=== PATIENT | female | born 1960 | race Caucasian/White ===

== ENCOUNTER → 2018-10-10 | Outpatient (CLI) | payer MEDICARE, OTHER, MEDICAID ==
[2018-10-10 13:56] LABS: BASO # 0.1 (0.02-0.10); EOS # 0.3 (0.04-0.40); EOS % 3.3 % (1.0-5.0); HEMATOCRIT 35.4 % (37.0-47.0); HEMOGLOBIN 10.9 g/dL (12.5-16.0); LYMPH# 1.9 (1.50-4.00); MEAN CELL VOLUME 80 fl (78-100); MEAN CORPUSCULAR HEMOGLOBIN 25 pg (27-31); MEAN CORPUSCULAR HGB CONC 31 g/dL (33-37); MEAN PLATELET VOLUME 10.6 fl (7.4-10.4); MONO # 0.7 (0.20-0.80); NEU # 5.3 (1.40-6.50); PLATELET COUNT 336 K/mm3 (130-400); RED BLOOD COUNT 4.44 M/mm3 (4.10-5.30); RED CELL DISTRIBUTION WIDTH 17.1 % (11.5-14.5); WHITE BLOOD COUNT 8.3 K/mm3 (4.8-10.8)
[2018-10-10 14:21] LABS: ALBUMIN 4.4 g/dL (3.5-5.0); CALCIUM 9.5 mg/dL (8.4-10.2); POTASSIUM 4.2 mmol/L (3.6-5.0); TOTAL BILIRUBIN 0.3 mg/dL (0.2-1.3)
== END ==
LOC: LAB 13:39
PROVIDERS: Internal Medicine
DX: C54.1 Malignant neoplasm of endometrium (principal)

== ENCOUNTER → 2018-11-03 | Outpatient (CLI) | payer MEDICARE, OTHER, MEDICAID ==
[2018-11-03 20:21] LABS: HEMATOCRIT 34.8 % (37.0-47.0); HEMOGLOBIN 10.6 g/dL (12.5-16.0); MEAN CELL VOLUME 80 fl (78-100); MEAN CORPUSCULAR HGB CONC 31 g/dL (33-37); MEAN PLATELET VOLUME 11.8 fl (7.4-10.4); PLATELET COUNT 359 K/mm3 (130-400); RED BLOOD COUNT 4.37 M/mm3 (4.10-5.30); RED CELL DISTRIBUTION WIDTH 17.7 % (11.5-14.5); WHITE BLOOD COUNT 8.1 K/mm3 (4.8-10.8)
[2018-11-03 20:38] LABS: ALBUMIN 4.3 g/dL (3.5-5.0); CALCIUM 9.2 mg/dL (8.4-10.2); POTASSIUM 3.7 mmol/L (3.6-5.0); TOTAL BILIRUBIN 0.2 mg/dL (0.2-1.3); TOTAL PROTEIN 8.3 g/dL (6.3-8.2)
[2018-11-03 20:39] LABS: MEAN CORPUSCULAR HEMOGLOBIN 24 pg (27-31)
[2018-11-04 01:58] LABS: BAND 1 % (0-10); NEUTROPHILS 73 % (42-75)
[2018-11-04 01:59] LABS: LYMPHOCYTE 18 % (20-51); MONOCYTE 6 % (3-10)
== END ==
LOC: LAB 16:26
PROVIDERS: Internal Medicine
DX: C54.1 Malignant neoplasm of endometrium (principal)

== ENCOUNTER → 2018-11-24 | Outpatient (CLI) | payer MEDICARE, OTHER, MEDICAID ==
[2018-11-24 15:36] LABS: EOS # 0.2 (0.04-0.40); EOS % 2.6 % (1.0-5.0); HEMATOCRIT 35.3 % (37.0-47.0); HEMOGLOBIN 10.9 g/dL (12.5-16.0); LYMPH# 1.9 (1.50-4.00); MEAN CELL VOLUME 78 fl (78-100); MEAN CORPUSCULAR HGB CONC 31 g/dL (33-37); MEAN PLATELET VOLUME 11.2 fl (7.4-10.4); MONO # 0.6 (0.20-0.80); NEU # 5.1 (1.40-6.50); PLATELET COUNT 325 K/mm3 (130-400); RED BLOOD COUNT 4.54 M/mm3 (4.10-5.30); RED CELL DISTRIBUTION WIDTH 17.4 % (11.5-14.5); WHITE BLOOD COUNT 7.8 K/mm3 (4.8-10.8)
[2018-11-24 15:41] LABS: ALBUMIN 4.3 g/dL (3.5-5.0); CALCIUM 9.3 mg/dL (8.4-10.2); POTASSIUM 4.1 mmol/L (3.6-5.0); TOTAL BILIRUBIN 0.3 mg/dL (0.2-1.3); TOTAL PROTEIN 8.1 g/dL (6.3-8.2)
[2018-11-24 16:10] LABS: MEAN CORPUSCULAR HEMOGLOBIN 24 pg (27-31)
[2018-11-24 23:42] LABS: CA-125 10.2 U/mL (0.0-35.0)
== END ==
LOC: LAB 14:00
PROVIDERS: Internal Medicine
DX: C54.1 Malignant neoplasm of endometrium (principal); Z79.899 Other long term (current) drug therapy

== ENCOUNTER → 2018-12-15 | Outpatient (CLI) | payer MEDICARE, OTHER, MEDICAID ==
[2018-12-15 16:02] LABS: BASO # 0.1 (0.02-0.10); EOS # 0.2 (0.04-0.40); EOS % 2.6 % (1.0-5.0); HEMATOCRIT 34.7 % (37.0-47.0); HEMOGLOBIN 10.5 g/dL (12.5-16.0); LYMPH# 1.9 (1.50-4.00); MEAN CELL VOLUME 80 fl (78-100); MEAN CORPUSCULAR HGB CONC 30 g/dL (33-37); MEAN PLATELET VOLUME 10.7 fl (7.4-10.4); MONO # 0.6 (0.20-0.80); NEU # 5.3 (1.40-6.50); PLATELET COUNT 315 K/mm3 (130-400); RED BLOOD COUNT 4.35 M/mm3 (4.10-5.30)
[2018-12-15 16:10] LABS: MEAN CORPUSCULAR HEMOGLOBIN 24 pg (27-31)
[2018-12-15 16:21] LABS: ALBUMIN 4.4 g/dL (3.5-5.0); POTASSIUM 4.1 mmol/L (3.6-5.0); TOTAL BILIRUBIN 0.4 mg/dL (0.2-1.3); TOTAL PROTEIN 8.1 g/dL (6.3-8.2)
== END ==
LOC: LAB 15:37
PROVIDERS: Internal Medicine
DX: C54.1 Malignant neoplasm of endometrium (principal); E11.65 Type 2 diabetes mellitus with hyperglycemia; Z79.4 Long term (current) use of insulin

== ENCOUNTER → 2019-01-06 | Outpatient (CLI) | payer MEDICARE, OTHER, MEDICAID ==
[2019-01-06 18:02] LABS: EOS # 0.3 (0.04-0.40); EOS % 3.1 % (1.0-5.0); HEMATOCRIT 35.1 % (37.0-47.0); HEMOGLOBIN 10.6 g/dL (12.5-16.0); MEAN CELL VOLUME 80 fl (78-100); MEAN CORPUSCULAR HGB CONC 30 g/dL (33-37); MEAN PLATELET VOLUME 10.5 fl (7.4-10.4); MONO # 0.6 (0.20-0.80); NEU # 5.1 (1.40-6.50); PLATELET COUNT 345 K/mm3 (130-400); RED BLOOD COUNT 4.37 M/mm3 (4.10-5.30); RED CELL DISTRIBUTION WIDTH 16.6 % (11.5-14.5)
[2019-01-06 18:07] LABS: MEAN CORPUSCULAR HEMOGLOBIN 24 pg (27-31)
[2019-01-06 18:38] LABS: CALCIUM 9.5 mg/dL (8.4-10.2); POTASSIUM 4.4 mmol/L (3.6-5.0); TOTAL BILIRUBIN 0.2 mg/dL (0.2-1.3); TOTAL PROTEIN 7.3 g/dL (6.3-8.2)
[2019-01-07 20:48] LABS: CA-125 8.1 U/mL (0.0-35.0)
== END ==
LOC: LAB 17:33
PROVIDERS: Internal Medicine
DX: C54.1 Malignant neoplasm of endometrium (principal); I12.9 Hypertensive chronic kidney disease with stage 1 through stage 4 chronic kidney disease, or unspecified chronic kidney disease; N18.3 Chronic kidney disease, stage 3 (moderate)

== ENCOUNTER → 2019-01-26 | Outpatient (CLI) | payer MEDICARE, OTHER, MEDICAID ==
[2019-01-26 17:22] LABS: EOS # 0.2 (0.04-0.40); EOS % 2.4 % (1.0-5.0); HEMATOCRIT 36.2 % (37.0-47.0); HEMOGLOBIN 10.9 g/dL (12.5-16.0); LYMPH# 1.9 (1.50-4.00); MEAN CELL VOLUME 80 fl (78-100); MEAN CORPUSCULAR HGB CONC 30 g/dL (33-37); MEAN PLATELET VOLUME 10.8 fl (7.4-10.4); MONO # 0.8 (0.20-0.80); NEU # 5.1 (1.40-6.50); PLATELET COUNT 327 K/mm3 (130-400); RED CELL DISTRIBUTION WIDTH 16.6 % (11.5-14.5)
[2019-01-26 20:59] LABS: CALCIUM 9.5 mg/dL (8.4-10.2); POTASSIUM 4.1 mmol/L (3.6-5.0); TOTAL BILIRUBIN 0.3 mg/dL (0.2-1.3); TOTAL PROTEIN 7.3 g/dL (6.3-8.2)
[2019-01-26 22:03] LABS: MEAN CORPUSCULAR HEMOGLOBIN 24 pg (27-31)
== END ==
LOC: LAB 16:44
PROVIDERS: Internal Medicine
DX: C54.1 Malignant neoplasm of endometrium (principal); Z79.899 Other long term (current) drug therapy

== ENCOUNTER → 2019-02-17 | Outpatient (CLI) | payer MEDICARE, OTHER, MEDICAID ==
[2019-02-17 16:49] LABS: BASO # 0.1 (0.02-0.10); EOS # 0.2 (0.04-0.40); EOS % 2.6 % (1.0-5.0); HEMATOCRIT 37.7 % (37.0-47.0); HEMOGLOBIN 11.5 g/dL (12.5-16.0); MEAN CELL VOLUME 80 fl (78-100); MEAN CORPUSCULAR HGB CONC 31 g/dL (33-37); MEAN PLATELET VOLUME 10.6 fl (7.4-10.4); MONO # 0.7 (0.20-0.80); PLATELET COUNT 324 K/mm3 (130-400); RED BLOOD COUNT 4.74 M/mm3 (4.10-5.30); RED CELL DISTRIBUTION WIDTH 16.6 % (11.5-14.5)
[2019-02-17 17:02] LABS: MEAN CORPUSCULAR HEMOGLOBIN 24 pg (27-31)
[2019-02-17 17:24] LABS: POTASSIUM 3.9 mmol/L (3.5-5.1); TOTAL BILIRUBIN 0.3 mg/dL (0.2-1.2)
== END ==
LOC: LAB 16:25
PROVIDERS: Internal Medicine
DX: C54.1 Malignant neoplasm of endometrium (principal)

== ENCOUNTER → 2019-03-09 | Outpatient (CLI) | payer MEDICARE, OTHER, MEDICAID ==
[2019-03-09 13:16] LABS: BASO # 0.1 (0.02-0.10); EOS # 0.2 (0.04-0.40); HEMATOCRIT 36.4 % (37.0-47.0); HEMOGLOBIN 11.1 g/dL (12.5-16.0); LYMPH# 1.8 (1.50-4.00); MEAN CELL VOLUME 81 fl (78-100); MEAN CORPUSCULAR HEMOGLOBIN 25 pg (27-31); MEAN CORPUSCULAR HGB CONC 31 g/dL (33-37); MEAN PLATELET VOLUME 10.3 fl (7.4-10.4); MONO # 0.6 (0.20-0.80); NEU # 6.4 (1.40-6.50); PLATELET COUNT 332 K/mm3 (130-400); RED BLOOD COUNT 4.52 M/mm3 (4.10-5.30); RED CELL DISTRIBUTION WIDTH 17.5 % (11.5-14.5)
[2019-03-09 13:39] LABS: ALBUMIN 3.8 g/dL (3.5-5.0); CALCIUM 9.7 mg/dL (8.3-10.5); POTASSIUM 4.1 mmol/L (3.5-5.1); TOTAL BILIRUBIN 0.2 mg/dL (0.2-1.2); TOTAL PROTEIN 7.6 g/dL (6.4-8.3)
== END ==
LOC: LAB 12:58
PROVIDERS: Internal Medicine
DX: C54.1 Malignant neoplasm of endometrium (principal)

== ENCOUNTER → 2019-04-21 | Outpatient (CLI) | payer MEDICARE, OTHER, MEDICAID ==
[2019-04-21 13:55] LABS: ALBUMIN 3.9 g/dL (3.5-5.0)
[2019-04-21 13:56] LABS: POTASSIUM 3.7 mmol/L (3.5-5.1)
[2019-04-21 13:57] LABS: CALCIUM 9.4 mg/dL (8.3-10.5)
[2019-04-21 13:58] LABS: TOTAL PROTEIN 7.9 g/dL (6.4-8.3)
[2019-04-21 13:59] LABS: BASO # 0.1 (0.02-0.10); EOS # 0.2 (0.04-0.40); EOS % 1.8 % (1.0-5.0); HEMATOCRIT 35.6 % (37.0-47.0); LYMPH# 1.7 (1.50-4.00); MEAN CELL VOLUME 82 fl (78-100); MEAN CORPUSCULAR HEMOGLOBIN 25 pg (27-31); MEAN CORPUSCULAR HGB CONC 31 g/dL (33-37); MEAN PLATELET VOLUME 10.6 fl (7.4-10.4); MONO # 0.7 (0.20-0.80); NEU # 6.5 (1.40-6.50); PLATELET COUNT 345 K/mm3 (130-400); RED BLOOD COUNT 4.35 M/mm3 (4.10-5.30); WHITE BLOOD COUNT 9.1 K/mm3 (4.8-10.8)
[2019-04-21 14:00] LABS: TOTAL BILIRUBIN 0.3 mg/dL (0.2-1.2)
== END ==
LOC: LAB 13:19
PROVIDERS: Internal Medicine
DX: C54.1 Malignant neoplasm of endometrium (principal)

== ENCOUNTER → 2019-05-12 | Outpatient (CLI) | payer MEDICARE, OTHER, MEDICAID ==
[2019-05-12 14:16] LABS: BASO # 0.1 (0.02-0.10); EOS # 0.2 (0.04-0.40); EOS % 2.5 % (1.0-5.0); HEMATOCRIT 35.2 % (37.0-47.0); LYMPH# 1.7 (1.50-4.00); MEAN CELL VOLUME 82 fl (78-100); MEAN CORPUSCULAR HEMOGLOBIN 26 pg (27-31); MEAN CORPUSCULAR HGB CONC 31 g/dL (33-37); MEAN PLATELET VOLUME 9.5 fl (7.4-10.4); MONO # 0.8 (0.20-0.80); NEU # 6.8 (1.40-6.50); PLATELET COUNT 336 K/mm3 (130-400); RED BLOOD COUNT 4.29 M/mm3 (4.10-5.30); RED CELL DISTRIBUTION WIDTH 16.4 % (11.5-14.5); WHITE BLOOD COUNT 9.7 K/mm3 (4.8-10.8)
[2019-05-12 14:24] LABS: ALBUMIN 3.8 g/dL (3.5-5.0)
[2019-05-12 14:25] LABS: POTASSIUM 3.5 mmol/L (3.5-5.1)
[2019-05-12 14:26] LABS: CALCIUM 9.3 mg/dL (8.3-10.5)
[2019-05-12 14:27] LABS: TOTAL PROTEIN 8.5 g/dL (6.4-8.3)
[2019-05-12 14:29] LABS: TOTAL BILIRUBIN 0.2 mg/dL (0.2-1.2)
== END ==
LOC: LAB 14:01
PROVIDERS: Internal Medicine
DX: C54.1 Malignant neoplasm of endometrium (principal); Z79.899 Other long term (current) drug therapy

== ENCOUNTER → 2019-06-05 | Outpatient (CLI) | payer MEDICARE, OTHER, MEDICAID ==
[2019-06-05 16:56] LABS: BASO # 0.1 (0.02-0.10); EOS # 0.2 (0.04-0.40); EOS % 2.6 % (1.0-5.0); HEMATOCRIT 35.9 % (37.0-47.0); HEMOGLOBIN 11.3 g/dL (12.5-16.0); LYMPH# 2.2 (1.50-4.00); MEAN CELL VOLUME 82 fl (78-100); MEAN CORPUSCULAR HEMOGLOBIN 26 pg (27-31); MEAN CORPUSCULAR HGB CONC 32 g/dL (33-37); MEAN PLATELET VOLUME 10.4 fl (7.4-10.4); MONO # 0.9 (0.20-0.80); NEU # 5.9 (1.40-6.50); PLATELET COUNT 341 K/mm3 (130-400); RED BLOOD COUNT 4.37 M/mm3 (4.10-5.30); RED CELL DISTRIBUTION WIDTH 15.9 % (11.5-14.5); WHITE BLOOD COUNT 9.4 K/mm3 (4.8-10.8)
[2019-06-05 17:34] LABS: ALBUMIN 4.1 g/dL (3.5-5.0); POTASSIUM 3.9 mmol/L (3.5-5.1); SODIUM 140 mmol/L (136-145)
[2019-06-05 17:35] LABS: CALCIUM 9.5 mg/dL (8.3-10.5)
[2019-06-05 17:37] LABS: GLUCOSE 125 mg/dL (65-105); TOTAL PROTEIN 7.9 g/dL (6.4-8.3)
[2019-06-05 17:38] LABS: CARBON DIOXIDE 22 mmol/L (22-29)
[2019-06-05 17:42] LABS: AST-SGOT 17 U/L (5-34)
[2019-06-05 17:43] LABS: ALT/SGPT 24 U/L (0-55)
[2019-06-05 17:46] LABS: TOTAL BILIRUBIN 0.1 mg/dL (0.2-1.2)
== END ==
LOC: LAB 16:28
PROVIDERS: Internal Medicine
DX: C54.1 Malignant neoplasm of endometrium (principal); E03.9 Hypothyroidism, unspecified

== ENCOUNTER → 2019-06-26 | Outpatient (CLI) | payer MEDICARE, OTHER, MEDICAID ==
[2019-06-26 17:17] LABS: BASO # 0.1 (0.02-0.10); EOS # 0.3 (0.04-0.40); EOS % 4.1 % (1.0-5.0); HEMATOCRIT 34.7 % (37.0-47.0); HEMOGLOBIN 11.1 g/dL (12.5-16.0); LYMPH# 1.7 (1.50-4.00); MEAN CELL VOLUME 82 fl (78-100); MEAN CORPUSCULAR HEMOGLOBIN 26 pg (27-31); MEAN CORPUSCULAR HGB CONC 32 g/dL (33-37); MONO # 0.7 (0.20-0.80); NEU # 4.8 (1.40-6.50); PLATELET COUNT 317 K/mm3 (130-400); RED BLOOD COUNT 4.24 M/mm3 (4.10-5.30); RED CELL DISTRIBUTION WIDTH 16.2 % (11.5-14.5); WHITE BLOOD COUNT 7.6 K/mm3 (4.8-10.8)
[2019-06-26 17:38] LABS: POTASSIUM 3.6 mmol/L (3.5-5.1)
[2019-06-26 17:39] LABS: CALCIUM 9.2 mg/dL (8.3-10.5)
[2019-06-26 17:40] LABS: TOTAL PROTEIN 7.7 g/dL (6.4-8.3)
[2019-06-26 17:42] LABS: TOTAL BILIRUBIN 0.2 mg/dL (0.2-1.2)
== END ==
LOC: LAB 16:49
PROVIDERS: Family Medicine
DX: C54.1 Malignant neoplasm of endometrium (principal); E11.8 Type 2 diabetes mellitus with unspecified complications; Z79.4 Long term (current) use of insulin

== ENCOUNTER → 2019-07-17 | Outpatient (CLI) | payer MEDICARE, OTHER, MEDICAID ==
[2019-07-17 12:25] LABS: BASO # 0.1 (0.02-0.10); EOS # 0.3 (0.04-0.40); EOS % 2.9 % (1.0-5.0); HEMATOCRIT 36.2 % (37.0-47.0); HEMOGLOBIN 11.2 g/dL (12.5-16.0); LYMPH# 1.8 (1.50-4.00); MEAN CELL VOLUME 84 fl (78-100); MEAN CORPUSCULAR HEMOGLOBIN 26 pg (27-31); MEAN CORPUSCULAR HGB CONC 31 g/dL (33-37); MEAN PLATELET VOLUME 10.3 fl (7.4-10.4); MONO # 0.6 (0.20-0.80); NEU # 5.8 (1.40-6.50); PLATELET COUNT 315 K/mm3 (130-400); RED CELL DISTRIBUTION WIDTH 17.2 % (11.5-14.5); WHITE BLOOD COUNT 8.5 K/mm3 (4.8-10.8)
[2019-07-17 12:33] LABS: POTASSIUM 4.6 mmol/L (3.5-5.1)
[2019-07-17 12:34] LABS: CALCIUM 9.4 mg/dL (8.3-10.5)
[2019-07-17 12:35] LABS: TOTAL PROTEIN 8.2 g/dL (6.4-8.3)
[2019-07-17 12:47] LABS: TOTAL BILIRUBIN 0.1 mg/dL (0.2-1.2)
== END ==
LOC: LAB 12:00
PROVIDERS: Internal Medicine
DX: C54.1 Malignant neoplasm of endometrium (principal); C78.5 Secondary malignant neoplasm of large intestine and rectum; Z79.899 Other long term (current) drug therapy

== ENCOUNTER → 2019-08-07 | Outpatient (CLI) | payer MEDICARE, OTHER, MEDICAID ==
[2019-08-07 17:15] LABS: BASO # 0.1 (0.02-0.10); EOS # 0.3 (0.04-0.40); EOS % 3.7 % (1.0-5.0); HEMATOCRIT 39.1 % (37.0-47.0); HEMOGLOBIN 13.6 g/dL (12.5-16.0); LYMPH# 2.9 (1.50-4.00); MEAN CELL VOLUME 88 fl (78-100); MEAN CORPUSCULAR HEMOGLOBIN 31 pg (27-31); MEAN CORPUSCULAR HGB CONC 35 g/dL (33-37); MEAN PLATELET VOLUME 9.9 fl (7.4-10.4); MONO # 0.9 (0.20-0.80); NEU # 4.9 (1.40-6.50); PLATELET COUNT 286 K/mm3 (130-400); RED BLOOD COUNT 4.46 M/mm3 (4.10-5.30); RED CELL DISTRIBUTION WIDTH 12.6 % (11.5-14.5); WHITE BLOOD COUNT 9.2 K/mm3 (4.8-10.8)
[2019-08-07 17:24] LABS: ALBUMIN 4.3 g/dL (3.5-5.0); POTASSIUM 4.8 mmol/L (3.5-5.1)
[2019-08-07 17:25] LABS: CALCIUM 9.6 mg/dL (8.3-10.5)
[2019-08-07 17:26] LABS: TOTAL PROTEIN 8.5 g/dL (6.4-8.3)
[2019-08-07 17:28] LABS: TOTAL BILIRUBIN 0.2 mg/dL (0.2-1.2)
== END ==
LOC: LAB 16:40
PROVIDERS: Internal Medicine
DX: C54.1 Malignant neoplasm of endometrium (principal); C78.5 Secondary malignant neoplasm of large intestine and rectum; Z79.899 Other long term (current) drug therapy

== ENCOUNTER → 2019-08-29 | Outpatient (CLI) | payer MEDICARE, OTHER, MEDICAID ==
[2019-08-29 12:29] LABS: EOS # 0.2 (0.04-0.40); EOS % 2.4 % (1.0-5.0); HEMOGLOBIN 10.5 g/dL (12.5-16.0); LYMPH# 1.3 (1.50-4.00); MEAN CELL VOLUME 85 fl (78-100); MEAN CORPUSCULAR HEMOGLOBIN 26 pg (27-31); MEAN CORPUSCULAR HGB CONC 31 g/dL (33-37); MONO # 0.5 (0.20-0.80); NEU # 6.5 (1.40-6.50); PLATELET COUNT 340 K/mm3 (130-400); RED BLOOD COUNT 3.98 M/mm3 (4.10-5.30); RED CELL DISTRIBUTION WIDTH 16.7 % (11.5-14.5); WHITE BLOOD COUNT 8.6 K/mm3 (4.8-10.8)
[2019-08-29 12:36] LABS: POTASSIUM 5.2 mmol/L (3.5-5.1)
[2019-08-29 12:37] LABS: CALCIUM 9.9 mg/dL (8.3-10.5)
[2019-08-29 12:39] LABS: TOTAL PROTEIN 7.8 g/dL (6.4-8.3)
[2019-08-29 13:15] LABS: TOTAL BILIRUBIN 0.1 mg/dL (0.2-1.2)
== END ==
LOC: LAB 12:04
PROVIDERS: Internal Medicine
DX: C54.1 Malignant neoplasm of endometrium (principal); C78.5 Secondary malignant neoplasm of large intestine and rectum; C79.89 Secondary malignant neoplasm of other specified sites

== ENCOUNTER → 2019-09-17 | Outpatient (CLI) | payer MEDICARE, OTHER, MEDICAID ==
[2019-09-17 16:26] LABS: BASO # 0.1 (0.02-0.10); EOS # 0.2 (0.04-0.40); HEMATOCRIT 32.5 % (37.0-47.0); HEMOGLOBIN 10.2 g/dL (12.5-16.0); LYMPH# 1.6 (1.50-4.00); MEAN CELL VOLUME 87 fl (78-100); MEAN CORPUSCULAR HEMOGLOBIN 27 pg (27-31); MEAN CORPUSCULAR HGB CONC 31 g/dL (33-37); MONO # 0.7 (0.20-0.80); NEU # 5.4 (1.40-6.50); PLATELET COUNT 345 K/mm3 (130-400); RED BLOOD COUNT 3.74 M/mm3 (4.10-5.30); RED CELL DISTRIBUTION WIDTH 16.7 % (11.5-14.5)
[2019-09-17 16:39] LABS: ALBUMIN 3.9 g/dL (3.5-5.0)
[2019-09-17 16:40] LABS: POTASSIUM 4.7 mmol/L (3.5-5.1)
[2019-09-17 16:41] LABS: CALCIUM 9.4 mg/dL (8.3-10.5)
[2019-09-17 16:42] LABS: TOTAL PROTEIN 7.4 g/dL (6.4-8.3)
[2019-09-17 16:44] LABS: TOTAL BILIRUBIN 0.2 mg/dL (0.2-1.2)
[2019-09-18 23:39] LABS: CA-125 4.4 U/mL (0.0-35.0)
== END ==
LOC: LAB 16:04
PROVIDERS: Internal Medicine
DX: C54.1 Malignant neoplasm of endometrium (principal)

== ENCOUNTER → 2019-10-12 | Outpatient (CLI) | payer MEDICARE, OTHER, MEDICAID ==
[2019-10-12 13:46] LABS: ALBUMIN 3.9 g/dL (3.5-5.0); POTASSIUM 4.6 mmol/L (3.5-5.1)
[2019-10-12 13:48] LABS: BASO # 0.1 (0.02-0.10); EOS # 0.3 (0.04-0.40); EOS % 3.8 % (1.0-5.0); HEMATOCRIT 34.5 % (37.0-47.0); HEMOGLOBIN 10.4 g/dL (12.5-16.0); LYMPH# 1.6 (1.50-4.00); MEAN CELL VOLUME 89 fl (78-100); MEAN CORPUSCULAR HEMOGLOBIN 27 pg (27-31); MEAN CORPUSCULAR HGB CONC 30 g/dL (33-37); MEAN PLATELET VOLUME 10.3 fl (7.4-10.4); MONO # 0.5 (0.20-0.80); NEU # 4.1 (1.40-6.50); PLATELET COUNT 325 K/mm3 (130-400); RED BLOOD COUNT 3.89 M/mm3 (4.10-5.30); WHITE BLOOD COUNT 6.5 K/mm3 (4.8-10.8)
[2019-10-12 13:49] LABS: TOTAL PROTEIN 7.8 g/dL (6.4-8.3)
[2019-10-12 13:59] LABS: TOTAL BILIRUBIN 0.1 mg/dL (0.2-1.2)
== END ==
LOC: LAB 13:09
PROVIDERS: Internal Medicine
DX: C54.1 Malignant neoplasm of endometrium (principal)

== ENCOUNTER → 2019-10-30 | Outpatient (CLI) | payer MEDICARE, OTHER, MEDICAID ==
[2019-10-30 13:49] LABS: EOS # 0.3 (0.04-0.40); HEMATOCRIT 33.5 % (37.0-47.0); HEMOGLOBIN 10.3 g/dL (12.5-16.0); LYMPH# 1.4 (1.50-4.00); MEAN CELL VOLUME 88 fl (78-100); MEAN CORPUSCULAR HEMOGLOBIN 27 pg (27-31); MEAN CORPUSCULAR HGB CONC 31 g/dL (33-37); MEAN PLATELET VOLUME 10.1 fl (7.4-10.4); MONO # 0.6 (0.20-0.80); NEU # 5.2 (1.40-6.50); PLATELET COUNT 350 K/mm3 (130-400); RED BLOOD COUNT 3.79 M/mm3 (4.10-5.30); RED CELL DISTRIBUTION WIDTH 15.1 % (11.5-14.5); WHITE BLOOD COUNT 7.5 K/mm3 (4.8-10.8)
[2019-10-30 14:03] LABS: TOTAL BILIRUBIN 0.2 mg/dL (0.2-1.2)
[2019-10-30 14:19] LABS: ALBUMIN 3.9 g/dL (3.5-5.0); CALCIUM 9.1 mg/dL (8.3-10.5); TOTAL PROTEIN 7.4 g/dL (6.4-8.3)
== END ==
LOC: LAB 13:06
PROVIDERS: Internal Medicine
DX: C54.1 Malignant neoplasm of endometrium (principal)

== ENCOUNTER → 2019-11-21 | Outpatient (CLI) | payer MEDICARE, OTHER, MEDICAID ==
[2019-11-21 13:12] LABS: BASO # 0.1 (0.02-0.10); EOS # 0.2 (0.04-0.40); EOS % 3.5 % (1.0-5.0); HEMOGLOBIN 10.2 g/dL (12.5-16.0); LYMPH# 1.2 (1.50-4.00); MEAN CELL VOLUME 90 fl (78-100); MEAN CORPUSCULAR HEMOGLOBIN 27 pg (27-31); MEAN CORPUSCULAR HGB CONC 30 g/dL (33-37); MEAN PLATELET VOLUME 10.2 fl (7.4-10.4); MONO # 0.6 (0.20-0.80); PLATELET COUNT 305 K/mm3 (130-400); RED BLOOD COUNT 3.79 M/mm3 (4.10-5.30); RED CELL DISTRIBUTION WIDTH 14.7 % (11.5-14.5); WHITE BLOOD COUNT 6.1 K/mm3 (4.8-10.8)
[2019-11-21 13:23] LABS: ALBUMIN 3.9 g/dL (3.5-5.0); POTASSIUM 4.6 mmol/L (3.5-5.1)
[2019-11-21 13:24] LABS: CALCIUM 8.9 mg/dL (8.3-10.5)
[2019-11-21 13:26] LABS: TOTAL PROTEIN 7.5 g/dL (6.4-8.3)
[2019-11-21 13:27] LABS: TOTAL BILIRUBIN 0.2 mg/dL (0.2-1.2)
== END ==
LOC: LAB 12:11
PROVIDERS: Internal Medicine
DX: C54.1 Malignant neoplasm of endometrium (principal); I10 Essential (primary) hypertension

== ENCOUNTER → 2019-12-11 | Outpatient (CLI) | payer MEDICARE, OTHER, MEDICAID ==
[2019-12-11 11:17] LABS: POTASSIUM 5.3 mmol/L (3.5-5.1)
[2019-12-11 11:18] LABS: ALBUMIN 3.8 g/dL (3.5-5.0)
[2019-12-11 11:19] LABS: CALCIUM 9.3 mg/dL (8.3-10.5)
[2019-12-11 11:20] LABS: TOTAL PROTEIN 7.1 g/dL (6.4-8.3)
[2019-12-11 11:22] LABS: TOTAL BILIRUBIN 0.2 mg/dL (0.2-1.2)
[2019-12-11 11:27] LABS: MAGNESIUM 1.7 mg/dL (1.60-2.60)
[2019-12-11 11:41] LABS: EOS # 0.3 (0.04-0.40); HEMATOCRIT 34.3 % (37.0-47.0); HEMOGLOBIN 10.3 g/dL (12.5-16.0); LYMPH# 1.4 (1.50-4.00); MEAN CELL VOLUME 91 fl (78-100); MEAN CORPUSCULAR HEMOGLOBIN 27 pg (27-31); MEAN CORPUSCULAR HGB CONC 30 g/dL (33-37); MEAN PLATELET VOLUME 10.5 fl (7.4-10.4); MONO # 0.5 (0.20-0.80); NEU # 3.7 (1.40-6.50); PLATELET COUNT 309 K/mm3 (130-400); RED BLOOD COUNT 3.76 M/mm3 (4.10-5.30); RED CELL DISTRIBUTION WIDTH 14.2 % (11.5-14.5)
[2019-12-11 13:35] LABS: URINE APPEARANCE CLEAR; URINE COLOR YELLOW
[2019-12-11 13:36] LABS: URINE BILIRUBIN NEGATIVE (NEGATIVE); URINE BLOOD NEGATIVE (NEGATIVE); URINE GLUCOSE NEGATIVE (NEGATIVE); URINE KETONE NEGATIVE (NEGATIVE); URINE LEUKOCYTE ESTERASE NEGATIVE (NEGATIVE); URINE MUCUS PRESENT (NOT PRESENT); URINE NITRATE NEGATIVE (NEGATIVE); URINE PROTEIN(semi-quant) 1+ mg/dL (NEGATIVE); URINE UROBILINOGEN NORMAL (NORMAL); URINE WBC 0-1 /hpf (0-3)
== END ==
LOC: LAB 10:38
PROVIDERS: Internal Medicine
DX: E11.649 Type 2 diabetes mellitus with hypoglycemia without coma (principal); C54.1 Malignant neoplasm of endometrium; E87.2 Acidosis; E87.5 Hyperkalemia; R19.7 Diarrhea, unspecified

== ENCOUNTER → 2020-01-22 | Outpatient (CLI) | payer MEDICARE, OTHER, MEDICAID ==
[2020-01-22 10:56] LABS: BASO # 0.1 (0.02-0.10); EOS # 0.3 (0.04-0.40); EOS % 4.7 % (1.0-5.0); HEMATOCRIT 35.7 % (37.0-47.0); HEMOGLOBIN 10.6 g/dL (12.5-16.0); LYMPH# 1.3 (1.50-4.00); MEAN CELL VOLUME 90 fl (78-100); MEAN CORPUSCULAR HEMOGLOBIN 27 pg (27-31); MEAN CORPUSCULAR HGB CONC 30 g/dL (33-37); MEAN PLATELET VOLUME 10.1 fl (7.4-10.4); MONO # 0.3 (0.20-0.80); NEU # 3.4 (1.40-6.50); PLATELET COUNT 289 K/mm3 (130-400); RED BLOOD COUNT 3.95 M/mm3 (4.10-5.30); RED CELL DISTRIBUTION WIDTH 13.7 % (11.5-14.5); WHITE BLOOD COUNT 5.4 K/mm3 (4.8-10.8)
[2020-01-22 10:59] LABS: ALBUMIN 3.8 g/dL (3.4-4.8); POTASSIUM 4.9 mmol/L (3.5-5.1)
[2020-01-22 11:01] LABS: TOTAL PROTEIN 7.2 g/dL (6.2-8.1)
[2020-01-22 11:03] LABS: TOTAL BILIRUBIN 0.2 mg/dL (0.2-1.2)
== END ==
LOC: LAB 10:35
PROVIDERS: Internal Medicine
DX: C54.1 Malignant neoplasm of endometrium (principal)

== ENCOUNTER → 2020-02-12 | Outpatient (CLI) | payer MEDICARE, OTHER, MEDICAID ==
[2020-02-12 11:21] LABS: BASO # 0.1 (0.02-0.10); EOS # 0.3 (0.04-0.40); EOS % 4.3 % (1.0-5.0); HEMATOCRIT 33.9 % (37.0-47.0); HEMOGLOBIN 10.1 g/dL (12.5-16.0); LYMPH# 1.5 (1.50-4.00); MEAN CELL VOLUME 89 fl (78-100); MEAN CORPUSCULAR HEMOGLOBIN 27 pg (27-31); MEAN CORPUSCULAR HGB CONC 30 g/dL (33-37); MEAN PLATELET VOLUME 10.7 fl (7.4-10.4); MONO # 0.5 (0.20-0.80); NEU # 4.6 (1.40-6.50); PLATELET COUNT 274 K/mm3 (130-400); RED BLOOD COUNT 3.81 M/mm3 (4.10-5.30); WHITE BLOOD COUNT 6.9 K/mm3 (4.8-10.8)
[2020-02-12 11:23] LABS: ALBUMIN 3.8 g/dL (3.4-4.8); POTASSIUM 5.4 mmol/L (3.5-5.1)
[2020-02-12 11:24] LABS: CALCIUM 9.2 mg/dL (8.3-10.5)
[2020-02-12 11:25] LABS: TOTAL PROTEIN 7.1 g/dL (6.2-8.1)
[2020-02-12 11:35] LABS: TOTAL BILIRUBIN 0.1 mg/dL (0.2-1.2)
== END ==
LOC: LAB 10:46
PROVIDERS: Internal Medicine
DX: C54.1 Malignant neoplasm of endometrium (principal)

== ENCOUNTER → 2020-03-04 | Outpatient (CLI) | payer MEDICARE, OTHER, MEDICAID ==
[2020-03-04 14:31] LABS: EOS # 0.3 (0.04-0.40); EOS % 3.7 % (1.0-5.0); HEMATOCRIT 34.7 % (37.0-47.0); HEMOGLOBIN 10.6 g/dL (12.5-16.0); LYMPH# 1.5 (1.50-4.00); MEAN CELL VOLUME 88 fl (78-100); MEAN CORPUSCULAR HEMOGLOBIN 27 pg (27-31); MEAN CORPUSCULAR HGB CONC 31 g/dL (33-37); MONO # 0.6 (0.20-0.80); NEU # 6.1 (1.40-6.50); PLATELET COUNT 301 K/mm3 (130-400); RED BLOOD COUNT 3.93 M/mm3 (4.10-5.30); RED CELL DISTRIBUTION WIDTH 14.4 % (11.5-14.5); WHITE BLOOD COUNT 8.5 K/mm3 (4.8-10.8)
[2020-03-04 14:42] LABS: POTASSIUM 5.3 mmol/L (3.5-5.1)
[2020-03-04 14:43] LABS: CALCIUM 9.2 mg/dL (8.3-10.5)
[2020-03-04 14:44] LABS: TOTAL PROTEIN 7.4 g/dL (6.2-8.1)
[2020-03-04 15:03] LABS: TOTAL BILIRUBIN 0.1 mg/dL (0.2-1.2)
== END ==
LOC: LAB 14:15
PROVIDERS: Internal Medicine
DX: C54.1 Malignant neoplasm of endometrium (principal)

== ENCOUNTER → 2020-03-25 | Outpatient (CLI) | payer MEDICARE, OTHER, MEDICAID ==
[2020-03-25 15:48] LABS: EOS # 0.3 (0.04-0.40); EOS % 4.4 % (1.0-5.0); HEMATOCRIT 34.9 % (37.0-47.0); HEMOGLOBIN 10.7 g/dL (12.5-16.0); LYMPH# 1.4 (1.50-4.00); MEAN CELL VOLUME 88 fl (78-100); MEAN CORPUSCULAR HEMOGLOBIN 27 pg (27-31); MEAN CORPUSCULAR HGB CONC 31 g/dL (33-37); MEAN PLATELET VOLUME 10.4 fl (7.4-10.4); MONO # 0.6 (0.20-0.80); NEU # 4.3 (1.40-6.50); PLATELET COUNT 297 K/mm3 (130-400); RED BLOOD COUNT 3.95 M/mm3 (4.10-5.30); RED CELL DISTRIBUTION WIDTH 14.6 % (11.5-14.5); WHITE BLOOD COUNT 6.6 K/mm3 (4.8-10.8)
== END ==
LOC: LAB 14:51
PROVIDERS: Internal Medicine
DX: C54.1 Malignant neoplasm of endometrium (principal); I10 Essential (primary) hypertension

== ENCOUNTER → 2020-04-15 | Outpatient (CLI) | payer MEDICARE, OTHER, MEDICAID ==
[2020-04-15 13:43] LABS: EOS # 0.3 (0.04-0.40); EOS % 4.4 % (1.0-5.0); HEMATOCRIT 34.9 % (37.0-47.0); HEMOGLOBIN 10.6 g/dL (12.5-16.0); LYMPH# 1.4 (1.50-4.00); MEAN CELL VOLUME 88 fl (78-100); MEAN CORPUSCULAR HEMOGLOBIN 27 pg (27-31); MEAN CORPUSCULAR HGB CONC 30 g/dL (33-37); MEAN PLATELET VOLUME 9.5 fl (7.4-10.4); MONO # 0.6 (0.20-0.80); NEU # 4.3 (1.40-6.50); PLATELET COUNT 282 K/mm3 (130-400); RED BLOOD COUNT 3.97 M/mm3 (4.10-5.30); RED CELL DISTRIBUTION WIDTH 15.1 % (11.5-14.5); WHITE BLOOD COUNT 6.6 K/mm3 (4.8-10.8)
[2020-04-15 13:53] LABS: POTASSIUM 5.4 mmol/L (3.5-5.1)
[2020-04-15 13:56] LABS: TOTAL PROTEIN 7.7 g/dL (6.2-8.1)
[2020-04-15 13:57] LABS: TOTAL BILIRUBIN 0.2 mg/dL (0.2-1.2)
== END ==
LOC: LAB 13:31
PROVIDERS: Internal Medicine
DX: C54.1 Malignant neoplasm of endometrium (principal)

== ENCOUNTER → 2020-05-06 | Outpatient (CLI) | payer MEDICARE, OTHER, MEDICAID ==
[2020-05-06 13:44] LABS: POTASSIUM 5.1 mmol/L (3.5-5.1)
[2020-05-06 13:46] LABS: TOTAL PROTEIN 7.6 g/dL (6.2-8.1)
[2020-05-06 13:48] LABS: TOTAL BILIRUBIN 0.2 mg/dL (0.2-1.2)
[2020-05-06 13:53] LABS: EOS # 0.3 (0.04-0.40); HEMATOCRIT 34.5 % (37.0-47.0); HEMOGLOBIN 10.6 g/dL (12.5-16.0); LYMPH# 1.3 (1.50-4.00); MEAN CELL VOLUME 89 fl (78-100); MEAN CORPUSCULAR HEMOGLOBIN 27 pg (27-31); MEAN CORPUSCULAR HGB CONC 31 g/dL (33-37); MEAN PLATELET VOLUME 10.4 fl (7.4-10.4); MONO # 0.6 (0.20-0.80); NEU # 5.2 (1.40-6.50); PLATELET COUNT 305 K/mm3 (130-400); RED BLOOD COUNT 3.88 M/mm3 (4.10-5.30); RED CELL DISTRIBUTION WIDTH 15.4 % (11.5-14.5); WHITE BLOOD COUNT 7.5 K/mm3 (4.8-10.8)
== END ==
LOC: LAB 13:12
PROVIDERS: Internal Medicine
DX: C54.1 Malignant neoplasm of endometrium (principal)

== ENCOUNTER → 2020-05-27 | Outpatient (CLI) | payer MEDICARE, OTHER, MEDICAID ==
[2020-05-27 09:05] LABS: ALBUMIN 3.7 g/dL (3.4-4.8); CALCIUM 8.8 mg/dL (8.3-10.5); EOS # 0.4 (0.04-0.40); EOS % 5.8 % (1.0-5.0); HEMATOCRIT 33.4 % (37.0-47.0); HEMOGLOBIN 10.1 g/dL (12.5-16.0); LYMPH# 1.8 (1.50-4.00); MEAN CELL VOLUME 90 fl (78-100); MEAN CORPUSCULAR HEMOGLOBIN 27 pg (27-31); MEAN CORPUSCULAR HGB CONC 30 g/dL (33-37); MEAN PLATELET VOLUME 9.6 fl (7.4-10.4); MONO # 0.4 (0.20-0.80); NEU # 3.5 (1.40-6.50); PLATELET COUNT 272 K/mm3 (130-400); POTASSIUM 4.9 mmol/L (3.5-5.1); RED BLOOD COUNT 3.72 M/mm3 (4.10-5.30); RED CELL DISTRIBUTION WIDTH 15.2 % (11.5-14.5); TOTAL BILIRUBIN 0.1 mg/dL (0.2-1.2); TOTAL PROTEIN 6.8 g/dL (6.2-8.1); WHITE BLOOD COUNT 6.2 K/mm3 (4.8-10.8)
== END ==
LOC: LAB 08:36
PROVIDERS: Internal Medicine
DX: C54.1 Malignant neoplasm of endometrium (principal); I10 Essential (primary) hypertension

== ENCOUNTER → 2020-06-17 | Outpatient (CLI) | payer MEDICARE, OTHER, MEDICAID ==
[2020-06-17 11:45] LABS: BASO # 0.1 (0.02-0.10); EOS # 0.3 (0.04-0.40); EOS % 4.3 % (1.0-5.0); HEMATOCRIT 34.9 % (37.0-47.0); HEMOGLOBIN 10.8 g/dL (12.5-16.0); LYMPH# 1.7 (1.50-4.00); MEAN CELL VOLUME 89 fl (78-100); MEAN CORPUSCULAR HEMOGLOBIN 28 pg (27-31); MEAN CORPUSCULAR HGB CONC 31 g/dL (33-37); MEAN PLATELET VOLUME 10.1 fl (7.4-10.4); MONO # 0.6 (0.20-0.80); NEU # 4.7 (1.40-6.50); PLATELET COUNT 279 K/mm3 (130-400); RED BLOOD COUNT 3.91 M/mm3 (4.10-5.30); RED CELL DISTRIBUTION WIDTH 14.2 % (11.5-14.5); WHITE BLOOD COUNT 7.4 K/mm3 (4.8-10.8)
[2020-06-17 11:56] LABS: ALBUMIN 3.9 g/dL (3.4-4.8); POTASSIUM 5.1 mmol/L (3.5-5.1)
[2020-06-17 11:57] LABS: CALCIUM 8.9 mg/dL (8.3-10.5)
[2020-06-17 11:58] LABS: TOTAL PROTEIN 7.2 g/dL (6.2-8.1)
[2020-06-17 12:00] LABS: TOTAL BILIRUBIN 0.2 mg/dL (0.2-1.2)
== END ==
LOC: LAB 11:29
PROVIDERS: Internal Medicine
DX: C54.1 Malignant neoplasm of endometrium (principal)

== ENCOUNTER → 2020-07-08 | Outpatient (CLI) | payer MEDICARE, OTHER, MEDICAID ==
[2020-07-08 13:46] LABS: HEMATOCRIT 36.2 % (37.0-47.0); HEMOGLOBIN 11.2 g/dL (12.5-16.0); MEAN PLATELET VOLUME 10.2 fl (7.4-10.4); RED BLOOD COUNT 4.07 M/mm3 (4.10-5.30); WHITE BLOOD COUNT 6.1 K/mm3 (4.8-10.8)
[2020-07-08 13:54] LABS: POTASSIUM 4.7 mmol/L (3.5-5.1)
[2020-07-08 13:55] LABS: CALCIUM 9.1 mg/dL (8.3-10.5)
[2020-07-08 13:57] LABS: TOTAL PROTEIN 7.4 g/dL (6.2-8.1)
[2020-07-08 13:59] LABS: TOTAL BILIRUBIN 0.2 mg/dL (0.2-1.2)
== END ==
LOC: LAB 13:29
PROVIDERS: Internal Medicine
DX: E78.2 Mixed hyperlipidemia (principal); C54.1 Malignant neoplasm of endometrium; I10 Essential (primary) hypertension; E11.9 Type 2 diabetes mellitus without complications; Z79.4 Long term (current) use of insulin

== ENCOUNTER → 2020-07-29 | Outpatient (CLI) | payer MEDICARE, OTHER, MEDICAID ==
[2020-07-29 15:17] LABS: BASO # 0.1 (0.02-0.10); EOS # 0.2 (0.04-0.40); EOS % 3.7 % (1.0-5.0); HEMATOCRIT 34.6 % (37.0-47.0); HEMOGLOBIN 10.6 g/dL (12.5-16.0); LYMPH# 1.2 (1.50-4.00); MEAN CELL VOLUME 90 fl (78-100); MEAN CORPUSCULAR HEMOGLOBIN 28 pg (27-31); MEAN CORPUSCULAR HGB CONC 31 g/dL (33-37); MEAN PLATELET VOLUME 10.4 fl (7.4-10.4); MONO # 0.5 (0.20-0.80); NEU # 3.7 (1.40-6.50); PLATELET COUNT 273 K/mm3 (130-400); RED BLOOD COUNT 3.85 M/mm3 (4.10-5.30); RED CELL DISTRIBUTION WIDTH 14.3 % (11.5-14.5); WHITE BLOOD COUNT 5.8 K/mm3 (4.8-10.8)
[2020-07-29 15:21] LABS: ALBUMIN 3.8 g/dL (3.4-4.8)
[2020-07-29 15:22] LABS: POTASSIUM 4.8 mmol/L (3.5-5.1)
[2020-07-29 15:23] LABS: CALCIUM 8.8 mg/dL (8.3-10.5)
[2020-07-29 15:24] LABS: TOTAL PROTEIN 6.8 g/dL (6.2-8.1)
[2020-07-29 15:26] LABS: TOTAL BILIRUBIN 0.2 mg/dL (0.2-1.2)
== END ==
LOC: LAB 14:51
PROVIDERS: Internal Medicine
DX: C54.1 Malignant neoplasm of endometrium (principal)

== ENCOUNTER → 2020-08-19 | Outpatient (CLI) | payer MEDICARE, OTHER, MEDICAID ==
[2020-08-19 15:21] LABS: EOS # 0.2 (0.04-0.40); EOS % 3.6 % (1.0-5.0); HEMOGLOBIN 10.6 g/dL (12.5-16.0); LYMPH# 1.4 (1.50-4.00); MEAN CELL VOLUME 90 fl (78-100); MEAN CORPUSCULAR HEMOGLOBIN 27 pg (27-31); MEAN CORPUSCULAR HGB CONC 30 g/dL (33-37); MEAN PLATELET VOLUME 9.9 fl (7.4-10.4); MONO # 0.5 (0.20-0.80); NEU # 4.5 (1.40-6.50); PLATELET COUNT 295 K/mm3 (130-400); RED BLOOD COUNT 3.91 M/mm3 (4.10-5.30); RED CELL DISTRIBUTION WIDTH 14.1 % (11.5-14.5); WHITE BLOOD COUNT 6.7 K/mm3 (4.8-10.8)
[2020-08-19 15:30] LABS: ALBUMIN 3.8 g/dL (3.4-4.8); POTASSIUM 4.8 mmol/L (3.5-5.1)
[2020-08-19 15:31] LABS: CALCIUM 8.9 mg/dL (8.3-10.5)
[2020-08-19 15:32] LABS: TOTAL PROTEIN 7.4 g/dL (6.2-8.1)
[2020-08-19 15:34] LABS: TOTAL BILIRUBIN 0.2 mg/dL (0.2-1.2)
== END ==
LOC: LAB 14:51
PROVIDERS: Internal Medicine
DX: C54.1 Malignant neoplasm of endometrium (principal); I10 Essential (primary) hypertension

== ENCOUNTER → 2020-09-09 | Outpatient (CLI) | payer MEDICARE, OTHER, MEDICAID ==
[2020-09-09 13:43] LABS: ALBUMIN 3.9 g/dL (3.4-4.8); POTASSIUM 5.1 mmol/L (3.5-5.1)
[2020-09-09 13:44] LABS: CALCIUM 8.8 mg/dL (8.3-10.5)
[2020-09-09 13:45] LABS: TOTAL PROTEIN 7.2 g/dL (6.2-8.1)
[2020-09-09 13:47] LABS: TOTAL BILIRUBIN 0.2 mg/dL (0.2-1.2)
[2020-09-09 14:12] LABS: EOS # 0.4 (0.04-0.40); EOS % 5.3 % (1.0-5.0); HEMATOCRIT 35.6 % (37.0-47.0); HEMOGLOBIN 10.8 g/dL (12.5-16.0); LYMPH# 1.6 (1.50-4.00); MEAN CELL VOLUME 89 fl (78-100); MEAN CORPUSCULAR HEMOGLOBIN 27 pg (27-31); MEAN CORPUSCULAR HGB CONC 30 g/dL (33-37); MEAN PLATELET VOLUME 10.4 fl (7.4-10.4); MONO # 0.5 (0.20-0.80); NEU # 4.5 (1.40-6.50); PLATELET COUNT 306 K/mm3 (130-400); RED BLOOD COUNT 3.99 M/mm3 (4.10-5.30); RED CELL DISTRIBUTION WIDTH 14.1 % (11.5-14.5)
== END ==
LOC: LAB 13:00
PROVIDERS: Internal Medicine
DX: C54.1 Malignant neoplasm of endometrium (principal)

== ENCOUNTER → 2020-09-28 | Outpatient (CLI) | payer MEDICARE, OTHER, MEDICAID ==
[2020-09-28 14:11] LABS: EOS # 0.3 (0.04-0.40); EOS % 4.7 % (1.0-5.0); HEMATOCRIT 34.5 % (37.0-47.0); HEMOGLOBIN 10.5 g/dL (12.5-16.0); LYMPH# 1.4 (1.50-4.00); MEAN CELL VOLUME 89 fl (78-100); MEAN CORPUSCULAR HEMOGLOBIN 27 pg (27-31); MEAN CORPUSCULAR HGB CONC 30 g/dL (33-37); MEAN PLATELET VOLUME 9.9 fl (7.4-10.4); MONO # 0.6 (0.20-0.80); NEU # 3.9 (1.40-6.50); PLATELET COUNT 288 K/mm3 (130-400); RED BLOOD COUNT 3.89 M/mm3 (4.10-5.30); RED CELL DISTRIBUTION WIDTH 14.5 % (11.5-14.5); WHITE BLOOD COUNT 6.2 K/mm3 (4.8-10.8)
[2020-09-28 14:22] LABS: ALBUMIN 3.8 g/dL (3.4-4.8); POTASSIUM 4.6 mmol/L (3.5-5.1)
[2020-09-28 14:23] LABS: CALCIUM 8.9 mg/dL (8.3-10.5)
[2020-09-28 14:24] LABS: TOTAL PROTEIN 7.2 g/dL (6.2-8.1)
[2020-09-28 14:26] LABS: TOTAL BILIRUBIN 0.2 mg/dL (0.2-1.2)
== END ==
LOC: LAB 13:57
PROVIDERS: Internal Medicine
DX: C54.1 Malignant neoplasm of endometrium (principal)

== ENCOUNTER → 2020-10-28 | Outpatient (CLI) | payer MEDICARE, OTHER, MEDICAID ==
[2020-10-28 11:14] LABS: EOS # 0.2 (0.04-0.40); EOS % 3.4 % (1.0-5.0); HEMATOCRIT 34.4 % (37.0-47.0); HEMOGLOBIN 10.2 g/dL (12.5-16.0); LYMPH# 1.3 (1.50-4.00); MEAN CELL VOLUME 90 fl (78-100); MEAN CORPUSCULAR HEMOGLOBIN 27 pg (27-31); MEAN CORPUSCULAR HGB CONC 30 g/dL (33-37); MONO # 0.5 (0.20-0.80); NEU # 4.7 (1.40-6.50); PLATELET COUNT 289 K/mm3 (130-400); RED BLOOD COUNT 3.81 M/mm3 (4.10-5.30); RED CELL DISTRIBUTION WIDTH 14.8 % (11.5-14.5); WHITE BLOOD COUNT 6.7 K/mm3 (4.8-10.8)
[2020-10-28 11:23] LABS: ALBUMIN 3.7 g/dL (3.4-4.8); POTASSIUM 5.2 mmol/L (3.5-5.1)
[2020-10-28 11:24] LABS: CALCIUM 8.8 mg/dL (8.3-10.5)
[2020-10-28 11:25] LABS: TOTAL PROTEIN 6.9 g/dL (6.2-8.1)
[2020-10-28 11:54] LABS: TOTAL BILIRUBIN 0.1 mg/dL (0.2-1.2)
== END ==
LOC: LAB 10:51
PROVIDERS: Internal Medicine
DX: C54.1 Malignant neoplasm of endometrium (principal); E87.2 Acidosis; E87.5 Hyperkalemia

== ENCOUNTER → 2020-11-18 | Outpatient (CLI) | payer MEDICARE, OTHER, MEDICAID ==
[2020-11-18 13:37] LABS: EOS # 0.3 (0.04-0.40); EOS % 4.4 % (1.0-5.0); HEMATOCRIT 35.1 % (37.0-47.0); HEMOGLOBIN 10.5 g/dL (12.5-16.0); LYMPH# 1.5 (1.50-4.00); MEAN CELL VOLUME 91 fl (78-100); MEAN CORPUSCULAR HEMOGLOBIN 27 pg (27-31); MEAN CORPUSCULAR HGB CONC 30 g/dL (33-37); MEAN PLATELET VOLUME 10.2 fl (7.4-10.4); MONO # 0.5 (0.20-0.80); NEU # 3.9 (1.40-6.50); PLATELET COUNT 299 K/mm3 (130-400); RED BLOOD COUNT 3.85 M/mm3 (4.10-5.30); RED CELL DISTRIBUTION WIDTH 14.8 % (11.5-14.5); WHITE BLOOD COUNT 6.2 K/mm3 (4.8-10.8)
[2020-11-18 13:45] LABS: ALBUMIN 3.8 g/dL (3.4-4.8); POTASSIUM 5.1 mmol/L (3.5-5.1)
[2020-11-18 13:47] LABS: CALCIUM 8.6 mg/dL (8.3-10.5)
[2020-11-18 13:50] LABS: TOTAL BILIRUBIN 0.2 mg/dL (0.2-1.2)
== END ==
LOC: LAB 13:06
PROVIDERS: Internal Medicine
DX: C54.1 Malignant neoplasm of endometrium (principal)

== ENCOUNTER → 2020-12-14 | Outpatient (CLI) | payer MEDICARE, OTHER, MEDICAID ==
[2020-12-14 14:27] LABS: BASO # 0.1 (0.02-0.10); EOS # 0.3 (0.04-0.40); EOS % 4.7 % (1.0-5.0); HEMATOCRIT 35.6 % (37.0-47.0); HEMOGLOBIN 10.8 g/dL (12.5-16.0); LYMPH# 1.6 (1.50-4.00); MEAN CELL VOLUME 91 fl (78-100); MEAN CORPUSCULAR HEMOGLOBIN 28 pg (27-31); MEAN CORPUSCULAR HGB CONC 30 g/dL (33-37); MEAN PLATELET VOLUME 9.9 fl (7.4-10.4); MONO # 0.5 (0.20-0.80); NEU # 4.5 (1.40-6.50); PLATELET COUNT 290 K/mm3 (130-400); RED BLOOD COUNT 3.93 M/mm3 (4.10-5.30); RED CELL DISTRIBUTION WIDTH 14.7 % (11.5-14.5)
[2020-12-14 16:02] LABS: ALBUMIN 3.8 g/dL (3.4-4.8); POTASSIUM 5.2 mmol/L (3.5-5.1)
[2020-12-14 16:03] LABS: CALCIUM 8.7 mg/dL (8.3-10.5)
[2020-12-14 16:04] LABS: TOTAL PROTEIN 7.4 g/dL (6.2-8.1)
[2020-12-14 16:06] LABS: TOTAL BILIRUBIN 0.2 mg/dL (0.2-1.2)
== END ==
LOC: LAB 14:02
PROVIDERS: Internal Medicine
DX: C54.1 Malignant neoplasm of endometrium (principal)

== ENCOUNTER → 2021-01-05 | Outpatient (CLI) | payer MEDICARE, OTHER, MEDICAID ==
[2021-01-05 11:25] LABS: EOS # 0.3 (0.04-0.40); EOS % 4.7 % (1.0-5.0); HEMATOCRIT 34.8 % (37.0-47.0); HEMOGLOBIN 10.5 g/dL (12.5-16.0); LYMPH# 1.5 (1.50-4.00); MEAN CELL VOLUME 91 fl (78-100); MEAN CORPUSCULAR HEMOGLOBIN 27 pg (27-31); MEAN CORPUSCULAR HGB CONC 30 g/dL (33-37); MEAN PLATELET VOLUME 10.1 fl (7.4-10.4); MONO # 0.5 (0.20-0.80); NEU # 4.6 (1.40-6.50); PLATELET COUNT 298 K/mm3 (130-400); RED BLOOD COUNT 3.83 M/mm3 (4.10-5.30); RED CELL DISTRIBUTION WIDTH 14.3 % (11.5-14.5)
[2021-01-05 11:27] LABS: ALBUMIN 3.9 g/dL (3.4-4.8); POTASSIUM 5.3 mmol/L (3.5-5.1)
[2021-01-05 11:28] LABS: CALCIUM 8.6 mg/dL (8.3-10.5)
[2021-01-05 11:29] LABS: TOTAL PROTEIN 7.4 g/dL (6.2-8.1)
[2021-01-05 11:31] LABS: TOTAL BILIRUBIN 0.2 mg/dL (0.2-1.2)
== END ==
LOC: LAB 11:00
PROVIDERS: Internal Medicine
DX: C54.1 Malignant neoplasm of endometrium (principal)

== ENCOUNTER → 2021-01-27 | Outpatient (CLI) | payer MEDICARE, OTHER, MEDICAID ==
[2021-01-27 14:42] LABS: BASO # 0.1 (0.02-0.10); EOS # 0.3 (0.04-0.40); EOS % 4.6 % (1.0-5.0); HEMATOCRIT 34.6 % (37.0-47.0); HEMOGLOBIN 10.5 g/dL (12.5-16.0); LYMPH# 1.4 (1.50-4.00); MEAN CELL VOLUME 90 fl (78-100); MEAN CORPUSCULAR HEMOGLOBIN 27 pg (27-31); MEAN CORPUSCULAR HGB CONC 30 g/dL (33-37); MEAN PLATELET VOLUME 9.7 fl (7.4-10.4); MONO # 0.5 (0.20-0.80); NEU # 3.4 (1.40-6.50); PLATELET COUNT 267 K/mm3 (130-400); RED BLOOD COUNT 3.85 M/mm3 (4.10-5.30); RED CELL DISTRIBUTION WIDTH 13.9 % (11.5-14.5); WHITE BLOOD COUNT 5.6 K/mm3 (4.8-10.8)
[2021-01-27 15:00] LABS: ALBUMIN 3.8 g/dL (3.4-4.8)
[2021-01-27 15:03] LABS: TOTAL PROTEIN 7.3 g/dL (6.2-8.1)
[2021-01-27 15:05] LABS: TOTAL BILIRUBIN 0.2 mg/dL (0.2-1.2)
== END ==
LOC: LAB 14:08
PROVIDERS: Internal Medicine
DX: C54.1 Malignant neoplasm of endometrium (principal)

== ENCOUNTER → 2021-02-17 | Outpatient (CLI) | payer MEDICARE, OTHER, MEDICAID ==
[2021-02-17 10:47] LABS: BASO # 0.05 (0.02-0.10); EOS # 0.32 (0.04-0.40); EOS % 5.4 % (1.0-5.0); HEMATOCRIT 36.4 % (37.0-47.0); HEMOGLOBIN 11.3 g/dL (12.5-16.0); LYMPH# 1.38 (1.50-4.00); MEAN CELL VOLUME 89 fl (78-100); MEAN CORPUSCULAR HEMOGLOBIN 28 pg (27-31); MEAN CORPUSCULAR HGB CONC 31 g/dL (33-37); MEAN PLATELET VOLUME 10.5 fl (7.4-10.4); MONO # 0.49 (0.20-0.80); NEU # 3.71 (1.40-6.50); PLATELET COUNT 165 K/mm3 (130-400); RED CELL DISTRIBUTION WIDTH 13.8 % (11.5-14.5)
[2021-02-17 11:45] LABS: ALBUMIN 3.9 g/dL (3.4-4.8); POTASSIUM 5.6 mmol/L (3.5-5.1)
[2021-02-17 11:46] LABS: CALCIUM 8.8 mg/dL (8.3-10.5)
[2021-02-17 11:48] LABS: TOTAL PROTEIN 7.4 g/dL (6.2-8.1)
[2021-02-17 11:49] LABS: TOTAL BILIRUBIN 0.2 mg/dL (0.2-1.2)
== END ==
LOC: LAB 10:17
PROVIDERS: Internal Medicine
DX: C54.1 Malignant neoplasm of endometrium (principal)

== ENCOUNTER → 2021-03-10 | Outpatient (CLI) | payer MEDICARE, OTHER, MEDICAID ==
[2021-03-10 14:00] LABS: CALCIUM 8.8 mg/dL (8.3-10.5)
[2021-03-10 14:03] LABS: TOTAL BILIRUBIN 0.2 mg/dL (0.2-1.2)
[2021-03-10 14:10] LABS: BASO # 0.07 (0.02-0.10); EOS # 0.38 (0.04-0.40); EOS % 5.7 % (1.0-5.0); HEMATOCRIT 33.3 % (37.0-47.0); HEMOGLOBIN 10.3 g/dL (12.5-16.0); LYMPH# 1.37 (1.50-4.00); MEAN CELL VOLUME 88 fl (78-100); MEAN CORPUSCULAR HEMOGLOBIN 27 pg (27-31); MEAN CORPUSCULAR HGB CONC 31 g/dL (33-37); MEAN PLATELET VOLUME 10.1 fl (7.4-10.4); MONO # 0.56 (0.20-0.80); NEU # 4.28 (1.40-6.50); PLATELET COUNT 278 K/mm3 (130-400); RED BLOOD COUNT 3.78 M/mm3 (4.10-5.30); RED CELL DISTRIBUTION WIDTH 13.7 % (11.5-14.5); WHITE BLOOD COUNT 6.7 K/mm3 (4.8-10.8)
[2021-03-10 15:06] LABS: ALBUMIN 3.6 g/dL (3.4-4.8); POTASSIUM 5.6 mmol/L (3.5-5.1)
== END ==
LOC: LAB 13:26
PROVIDERS: Internal Medicine
DX: C54.1 Malignant neoplasm of endometrium (principal); E87.2 Acidosis; E87.5 Hyperkalemia

== ENCOUNTER → 2021-03-30 | Outpatient (CLI) | payer MEDICARE, OTHER, MEDICAID ==
[2021-03-30 10:05] LABS: BASO # 0.05 (0.02-0.10); EOS # 0.34 (0.04-0.40); EOS % 4.8 % (1.0-5.0); HEMATOCRIT 34.6 % (37.0-47.0); HEMOGLOBIN 10.8 g/dL (12.5-16.0); LYMPH# 1.71 (1.50-4.00); MEAN CELL VOLUME 88 fl (78-100); MEAN CORPUSCULAR HEMOGLOBIN 27 pg (27-31); MEAN CORPUSCULAR HGB CONC 31 g/dL (33-37); MONO # 0.54 (0.20-0.80); NEU # 4.46 (1.40-6.50); PLATELET COUNT 262 K/mm3 (130-400); RED BLOOD COUNT 3.94 M/mm3 (4.10-5.30); RED CELL DISTRIBUTION WIDTH 13.8 % (11.5-14.5); WHITE BLOOD COUNT 7.1 K/mm3 (4.8-10.8)
[2021-03-30 10:15] LABS: ALBUMIN 3.7 g/dL (3.4-4.8); POTASSIUM 4.9 mmol/L (3.5-5.1)
[2021-03-30 10:17] LABS: CALCIUM 8.8 mg/dL (8.3-10.5)
[2021-03-30 10:18] LABS: TOTAL PROTEIN 7.1 g/dL (6.2-8.1)
[2021-03-30 10:20] LABS: TOTAL BILIRUBIN 0.2 mg/dL (0.2-1.2)
== END ==
LOC: LAB 09:45
PROVIDERS: Internal Medicine
DX: C54.1 Malignant neoplasm of endometrium (principal); E78.2 Mixed hyperlipidemia

== ENCOUNTER → 2021-04-21 | Outpatient (CLI) | payer MEDICARE, OTHER, MEDICAID ==
[2021-04-21 09:43] LABS: BASO # 0.02 (0.02-0.10); EOS # 0.33 (0.04-0.40); EOS % 5.3 % (1.0-5.0); HEMATOCRIT 33.6 % (37.0-47.0); HEMOGLOBIN 10.5 g/dL (12.5-16.0); LYMPH# 1.35 (1.50-4.00); MEAN CELL VOLUME 88 fl (78-100); MEAN CORPUSCULAR HEMOGLOBIN 27 pg (27-31); MEAN CORPUSCULAR HGB CONC 31 g/dL (33-37); MONO # 0.45 (0.20-0.80); NEU # 4.05 (1.40-6.50); PLATELET COUNT 274 K/mm3 (130-400); RED BLOOD COUNT 3.83 M/mm3 (4.10-5.30); RED CELL DISTRIBUTION WIDTH 13.9 % (11.5-14.5); WHITE BLOOD COUNT 6.2 K/mm3 (4.8-10.8)
[2021-04-21 09:50] LABS: ALBUMIN 3.7 g/dL (3.4-4.8); POTASSIUM 4.8 mmol/L (3.5-5.1)
[2021-04-21 10:03] LABS: CALCIUM 8.8 mg/dL (8.3-10.5)
[2021-04-21 10:04] LABS: TOTAL PROTEIN 7.2 g/dL (6.2-8.1)
[2021-04-21 10:06] LABS: TOTAL BILIRUBIN 0.2 mg/dL (0.2-1.2)
== END ==
LOC: LAB 09:06
PROVIDERS: Internal Medicine
DX: C54.1 Malignant neoplasm of endometrium (principal)

== ENCOUNTER → 2021-05-11 | Outpatient (CLI) | payer MEDICARE, OTHER, MEDICAID ==
[2021-05-11 12:51] LABS: BASO # 0.01 (0.02-0.10); EOS # 0.28 (0.04-0.40); EOS % 4.5 % (1.0-5.0); HEMATOCRIT 35.2 % (37.0-47.0); HEMOGLOBIN 10.6 g/dL (12.5-16.0); LYMPH# 1.35 (1.50-4.00); MEAN CELL VOLUME 93 fl (78-100); MEAN CORPUSCULAR HEMOGLOBIN 28 pg (27-31); MEAN CORPUSCULAR HGB CONC 30 g/dL (33-37); MEAN PLATELET VOLUME 9.8 fl (7.4-10.4); MONO # 0.44 (0.20-0.80); NEU # 4.11 (1.40-6.50); PLATELET COUNT 261 K/mm3 (130-400); RED CELL DISTRIBUTION WIDTH 14.4 % (11.5-14.5); WHITE BLOOD COUNT 6.2 K/mm3 (4.8-10.8)
[2021-05-11 12:59] LABS: ALBUMIN 3.7 g/dL (3.4-4.8); POTASSIUM 4.9 mmol/L (3.5-5.1)
[2021-05-11 13:02] LABS: TOTAL PROTEIN 7.2 g/dL (6.2-8.1)
[2021-05-11 13:03] LABS: TOTAL BILIRUBIN 0.2 mg/dL (0.2-1.2)
== END ==
LOC: LAB 12:24
PROVIDERS: Internal Medicine
DX: E78.2 Mixed hyperlipidemia (principal); E11.9 Type 2 diabetes mellitus without complications; K90.9 Intestinal malabsorption, unspecified; D64.0 Hereditary sideroblastic anemia

== ENCOUNTER → 2021-06-02 | Outpatient (CLI) | payer MEDICARE, OTHER, MEDICAID ==
[2021-06-02 10:19] LABS: EOS # 0.27 (0.04-0.40); EOS % 4.4 % (1.0-5.0); HEMATOCRIT 35.6 % (37.0-47.0); HEMOGLOBIN 10.9 g/dL (12.5-16.0); LYMPH# 1.41 (1.50-4.00); MEAN CELL VOLUME 90 fl (78-100); MEAN CORPUSCULAR HEMOGLOBIN 28 pg (27-31); MEAN CORPUSCULAR HGB CONC 31 g/dL (33-37); MEAN PLATELET VOLUME 9.8 fl (7.4-10.4); MONO # 0.53 (0.20-0.80); NEU # 3.84 (1.40-6.50); PLATELET COUNT 279 K/mm3 (130-400); RED BLOOD COUNT 3.96 M/mm3 (4.10-5.30); RED CELL DISTRIBUTION WIDTH 14.3 % (11.5-14.5); WHITE BLOOD COUNT 6.1 K/mm3 (4.8-10.8)
[2021-06-02 10:26] LABS: ALBUMIN 3.6 g/dL (3.4-4.8); POTASSIUM 4.9 mmol/L (3.5-5.1)
[2021-06-02 10:28] LABS: CALCIUM 9.2 mg/dL (8.3-10.5)
[2021-06-02 10:31] LABS: TOTAL BILIRUBIN 0.3 mg/dL (0.2-1.2)
== END ==
LOC: LAB 09:49
PROVIDERS: Internal Medicine
DX: Z01.89 Encounter for other specified special examinations (principal)

== ENCOUNTER → 2021-06-23 | Outpatient (CLI) | payer MEDICARE, OTHER, MEDICAID ==
[2021-06-23 10:56] LABS: BASO # 0.01 (0.02-0.10); EOS # 0.32 (0.04-0.40); EOS % 4.8 % (1.0-5.0); HEMATOCRIT 34.9 % (37.0-47.0); HEMOGLOBIN 10.9 g/dL (12.5-16.0); LYMPH# 1.61 (1.50-4.00); MEAN CELL VOLUME 89 fl (78-100); MEAN CORPUSCULAR HEMOGLOBIN 28 pg (27-31); MEAN CORPUSCULAR HGB CONC 31 g/dL (33-37); MEAN PLATELET VOLUME 9.8 fl (7.4-10.4); MONO # 0.46 (0.20-0.80); NEU # 4.24 (1.40-6.50); PLATELET COUNT 267 K/mm3 (130-400); RED BLOOD COUNT 3.92 M/mm3 (4.10-5.30); RED CELL DISTRIBUTION WIDTH 14.4 % (11.5-14.5); WHITE BLOOD COUNT 6.7 K/mm3 (4.8-10.8)
[2021-06-23 11:29] LABS: ALBUMIN 3.7 g/dL (3.4-4.8)
[2021-06-23 11:31] LABS: CALCIUM 9.2 mg/dL (8.3-10.5)
[2021-06-23 11:32] LABS: TOTAL PROTEIN 6.9 g/dL (6.2-8.1)
[2021-06-23 11:34] LABS: TOTAL BILIRUBIN 0.2 mg/dL (0.2-1.2)
== END ==
LOC: LAB 10:36
PROVIDERS: Internal Medicine
DX: C54.1 Malignant neoplasm of endometrium (principal)

== ENCOUNTER → 2021-07-13 | Outpatient (CLI) | payer MEDICARE, OTHER, MEDICAID ==
[2021-07-13 11:32] LABS: BASO # 0.01 K/mm3 (0.02-0.10); EOS # 0.18 K/mm3 (0.04-0.40); EOS % 2.8 % (1.0-5.0); HEMATOCRIT 34.5 % (37.0-47.0); HEMOGLOBIN 10.5 g/dL (12.5-16.0); LYMPH# 1.51 K/mm3 (1.50-4.00); MEAN CELL VOLUME 92 fl (78-100); MEAN CORPUSCULAR HEMOGLOBIN 28 pg (27-31); MEAN CORPUSCULAR HGB CONC 30 g/dL (33-37); MEAN PLATELET VOLUME 9.8 fl (7.4-10.4); MONO # 0.39 K/mm3 (0.20-0.80); NEU # 4.36 K/mm3 (1.40-6.50); PLATELET COUNT 307 K/mm3 (130-400); RED BLOOD COUNT 3.76 M/mm3 (4.10-5.30); RED CELL DISTRIBUTION WIDTH 14.5 % (11.5-14.5); WHITE BLOOD COUNT 6.5 K/mm3 (4.8-10.8)
[2021-07-13 11:37] LABS: ALBUMIN 3.4 g/dL (3.4-4.8); POTASSIUM 5.3 mmol/L (3.5-5.1)
[2021-07-13 11:39] LABS: CALCIUM 8.9 mg/dL (8.3-10.5)
[2021-07-13 11:40] LABS: TOTAL PROTEIN 6.3 g/dL (6.2-8.1)
[2021-07-13 11:42] LABS: TOTAL BILIRUBIN 0.2 mg/dL (0.2-1.2)
== END ==
LOC: LAB 11:06
PROVIDERS: Internal Medicine
DX: C54.1 Malignant neoplasm of endometrium (principal)

== ENCOUNTER → 2021-08-04 | Outpatient (CLI) | payer MEDICARE, OTHER, MEDICAID ==
[2021-08-04 10:35] LABS: EOS # 0.28 K/mm3 (0.04-0.40); EOS % 3.6 % (1.0-5.0); HEMOGLOBIN 10.7 g/dL (12.5-16.0); LYMPH# 1.51 K/mm3 (1.50-4.00); MEAN CELL VOLUME 91 fl (78-100); MEAN CORPUSCULAR HEMOGLOBIN 28 pg (27-31); MEAN CORPUSCULAR HGB CONC 31 g/dL (33-37); MEAN PLATELET VOLUME 9.7 fl (7.4-10.4); MONO # 0.55 K/mm3 (0.20-0.80); NEU # 5.35 K/mm3 (1.40-6.50); PLATELET COUNT 314 K/mm3 (130-400); RED BLOOD COUNT 3.85 M/mm3 (4.10-5.30); RED CELL DISTRIBUTION WIDTH 13.9 % (11.5-14.5); WHITE BLOOD COUNT 7.8 K/mm3 (4.8-10.8)
[2021-08-04 10:45] LABS: ALBUMIN 3.7 g/dL (3.4-4.8); POTASSIUM 4.6 mmol/L (3.5-5.1)
[2021-08-04 10:46] LABS: CALCIUM 9.5 mg/dL (8.3-10.5)
[2021-08-04 10:48] LABS: TOTAL PROTEIN 6.9 g/dL (6.2-8.1)
[2021-08-04 10:49] LABS: TOTAL BILIRUBIN 0.2 mg/dL (0.2-1.2)
== END ==
LOC: LAB 09:55
PROVIDERS: Internal Medicine
DX: C54.1 Malignant neoplasm of endometrium (principal); Z01.89 Encounter for other specified special examinations

== ENCOUNTER → 2021-08-10 | Outpatient (CLI) | payer MEDICARE, OTHER, MEDICAID ==
[2021-08-10 10:43] LABS: BASO # 0.01 K/mm3 (0.02-0.10); EOS % 2.7 % (1.0-5.0); HEMATOCRIT 33.8 % (37.0-47.0); HEMOGLOBIN 10.5 g/dL (12.5-16.0); LYMPH# 1.27 K/mm3 (1.50-4.00); MEAN CELL VOLUME 89 fl (78-100); MEAN CORPUSCULAR HEMOGLOBIN 28 pg (27-31); MEAN CORPUSCULAR HGB CONC 31 g/dL (33-37); MEAN PLATELET VOLUME 9.1 fl (7.4-10.4); NEU # 5.36 K/mm3 (1.40-6.50); PLATELET COUNT 277 K/mm3 (130-400); RED BLOOD COUNT 3.79 M/mm3 (4.10-5.30); RED CELL DISTRIBUTION WIDTH 13.5 % (11.5-14.5); WHITE BLOOD COUNT 7.4 K/mm3 (4.8-10.8)
[2021-08-10 10:53] LABS: ALBUMIN 3.6 g/dL (3.4-4.8); POTASSIUM 4.4 mmol/L (3.5-5.1)
[2021-08-10 10:54] LABS: CALCIUM 9.2 mg/dL (8.3-10.5)
[2021-08-10 10:55] LABS: TOTAL PROTEIN 6.7 g/dL (6.2-8.1)
[2021-08-10 10:57] LABS: TOTAL BILIRUBIN 0.2 mg/dL (0.2-1.2)
== END ==
LOC: LAB 10:18
PROVIDERS: Internal Medicine
DX: K90.9 Intestinal malabsorption, unspecified (principal); E78.2 Mixed hyperlipidemia; E11.9 Type 2 diabetes mellitus without complications

== ENCOUNTER → 2021-08-11 | Outpatient (CLI) | payer MEDICARE, OTHER, MEDICAID ==
[2021-08-11 15:15] LABS: URINE APPEARANCE CLEAR; URINE BILIRUBIN NEGATIVE (NEGATIVE); URINE BLOOD NEGATIVE (NEGATIVE); URINE COLOR YELLOW; URINE GLUCOSE NEGATIVE (NEGATIVE); URINE KETONE NEGATIVE (NEGATIVE); URINE LEUKOCYTE ESTERASE NEGATIVE (NEGATIVE); URINE NITRATE NEGATIVE (NEGATIVE); URINE PROTEIN(semi-quant) 2+ mg/dL (NEGATIVE); URINE UROBILINOGEN NORMAL (NORMAL); URINE WBC 0-1 /hpf (0-3)
== END ==
LOC: LAB 14:49
PROVIDERS: Internal Medicine
DX: Z01.89 Encounter for other specified special examinations (principal)

== ENCOUNTER → 2021-08-24 | Outpatient (CLI) | payer MEDICARE, OTHER, MEDICAID ==
[2021-08-24 17:31] LABS: EOS # 0.32 K/mm3 (0.04-0.40); EOS % 4.6 % (1.0-5.0); LYMPH# 1.59 K/mm3 (1.50-4.00); MEAN CELL VOLUME 90 fl (78-100); MEAN CORPUSCULAR HEMOGLOBIN 28 pg (27-31); MEAN CORPUSCULAR HGB CONC 31 g/dL (33-37); MEAN PLATELET VOLUME 9.6 fl (7.4-10.4); MONO # 0.49 K/mm3 (0.20-0.80); NEU # 4.47 K/mm3 (1.40-6.50); PLATELET COUNT 304 K/mm3 (130-400); RED CELL DISTRIBUTION WIDTH 13.3 % (11.5-14.5); WHITE BLOOD COUNT 6.9 K/mm3 (4.8-10.8)
[2021-08-24 17:39] LABS: ALBUMIN 3.9 g/dL (3.4-4.8); POTASSIUM 4.4 mmol/L (3.5-5.1)
[2021-08-24 17:40] LABS: CALCIUM 9.4 mg/dL (8.3-10.5)
[2021-08-24 17:41] LABS: TOTAL PROTEIN 7.3 g/dL (6.2-8.1)
[2021-08-24 17:43] LABS: TOTAL BILIRUBIN 0.2 mg/dL (0.2-1.2)
== END ==
LOC: LAB 16:01
PROVIDERS: Internal Medicine
DX: Z12.11 Encounter for screening for malignant neoplasm of colon (principal)

== ENCOUNTER → 2021-09-15 | Outpatient (CLI) | payer MEDICARE, OTHER, MEDICAID ==
[2021-09-15 10:54] LABS: BASO # 0.01 K/mm3 (0.02-0.10); EOS # 0.26 K/mm3 (0.04-0.40); EOS % 3.2 % (1.0-5.0); HEMATOCRIT 35.1 % (37.0-47.0); HEMOGLOBIN 10.5 g/dL (12.5-16.0); LYMPH# 1.48 K/mm3 (1.50-4.00); MEAN CELL VOLUME 91 fl (78-100); MEAN CORPUSCULAR HEMOGLOBIN 27 pg (27-31); MEAN CORPUSCULAR HGB CONC 30 g/dL (33-37); MEAN PLATELET VOLUME 9.9 fl (7.4-10.4); MONO # 0.47 K/mm3 (0.20-0.80); PLATELET COUNT 299 K/mm3 (130-400); RED BLOOD COUNT 3.87 M/mm3 (4.10-5.30); RED CELL DISTRIBUTION WIDTH 13.6 % (11.5-14.5); WHITE BLOOD COUNT 8.1 K/mm3 (4.8-10.8)
[2021-09-15 11:05] LABS: ALBUMIN 3.7 g/dL (3.4-4.8); POTASSIUM 4.6 mmol/L (3.5-5.1)
[2021-09-15 11:06] LABS: CALCIUM 9.1 mg/dL (8.3-10.5)
[2021-09-15 11:08] LABS: TOTAL PROTEIN 7.1 g/dL (6.2-8.1)
[2021-09-15 11:09] LABS: TOTAL BILIRUBIN 0.2 mg/dL (0.2-1.2)
== END ==
LOC: LAB 10:18
PROVIDERS: Internal Medicine
DX: C54.1 Malignant neoplasm of endometrium (principal)

== ENCOUNTER → 2021-10-05 | Outpatient (CLI) | payer MEDICARE, OTHER, MEDICAID ==
[2021-10-05 14:10] LABS: BASO # 0.01 K/mm3 (0.02-0.10); EOS # 0.24 K/mm3 (0.04-0.40); EOS % 3.3 % (1.0-5.0); HEMATOCRIT 34.9 % (37.0-47.0); HEMOGLOBIN 10.9 g/dL (12.5-16.0); LYMPH# 1.22 K/mm3 (1.50-4.00); MEAN CELL VOLUME 87 fl (78-100); MEAN CORPUSCULAR HEMOGLOBIN 27 pg (27-31); MEAN CORPUSCULAR HGB CONC 31 g/dL (33-37); MEAN PLATELET VOLUME 9.8 fl (7.4-10.4); MONO # 0.57 K/mm3 (0.20-0.80); NEU # 5.15 K/mm3 (1.40-6.50); PLATELET COUNT 274 K/mm3 (130-400); RED BLOOD COUNT 4.01 M/mm3 (4.10-5.30); RED CELL DISTRIBUTION WIDTH 13.6 % (11.5-14.5); WHITE BLOOD COUNT 7.2 K/mm3 (4.8-10.8)
[2021-10-05 14:17] LABS: ALBUMIN 3.9 g/dL (3.4-4.8); POTASSIUM 4.5 mmol/L (3.5-5.1)
[2021-10-05 14:18] LABS: CALCIUM 9.3 mg/dL (8.3-10.5)
[2021-10-05 14:20] LABS: TOTAL PROTEIN 7.6 g/dL (6.2-8.1)
[2021-10-05 14:21] LABS: TOTAL BILIRUBIN 0.3 mg/dL (0.2-1.2)
== END ==
LOC: LAB 13:48
PROVIDERS: Internal Medicine
DX: C54.1 Malignant neoplasm of endometrium (principal)

== ENCOUNTER → 2021-10-20 | Outpatient (CLI) | payer MEDICARE, OTHER, MEDICAID | LOC: LAB 14:39 | DX: K90.9 Intestinal malabsorption, unspecified (principal) ==

== ENCOUNTER → 2021-11-14 | Outpatient (CLI) | payer MEDICARE, OTHER, MEDICAID ==
[2021-11-14 14:15] LABS: ALBUMIN 3.8 g/dL (3.4-4.8)
[2021-11-14 14:16] LABS: POTASSIUM 4.8 mmol/L (3.5-5.1)
[2021-11-14 14:17] LABS: CALCIUM 9.4 mg/dL (8.3-10.5)
== END ==
LOC: LAB 12:23
PROVIDERS: Internal Medicine Nephrology
DX: E87.5 Hyperkalemia (principal); E87.2 Acidosis

== ENCOUNTER → 2021-11-24 | Outpatient (CLI) | payer MEDICARE, OTHER, MEDICAID ==
[~2021-11-24] VITALS: Ht 157.5 cm; Wt 90.9 kg
[2021-11-24 10:22] VITALS: BP 157/77
[2021-11-24 12:00] VITALS: BP 155/72
== END ==
LOC: AMSURD 07:44
DX: N18.9 Chronic kidney disease, unspecified (principal); D63.1 Anemia in chronic kidney disease
CPT/HCPCS: J1756; J7050

== ENCOUNTER → 2022-01-04 | Outpatient (CLI) | payer MEDICARE, OTHER, MEDICAID ==
[2022-01-04 13:54] LABS: HEMOGLOBIN 10.6 g/dL (12.5-16.0); MEAN CELL VOLUME 89 fl (78-100); MEAN CORPUSCULAR HEMOGLOBIN 28 pg (27-31); MEAN CORPUSCULAR HGB CONC 31 g/dL (33-37); MEAN PLATELET VOLUME 9.8 fl (7.4-10.4); PLATELET COUNT 273 K/mm3 (130-400); RED BLOOD COUNT 3.84 M/mm3 (4.10-5.30); RED CELL DISTRIBUTION WIDTH 14.9 % (11.5-14.5); WHITE BLOOD COUNT 6.5 K/mm3 (4.8-10.8)
[2022-01-04 14:04] LABS: ALBUMIN 3.8 g/dL (3.4-4.8); POTASSIUM 4.7 mmol/L (3.5-5.1)
[2022-01-04 14:05] LABS: CALCIUM 9.3 mg/dL (8.3-10.5)
[2022-01-04 14:06] LABS: TOTAL PROTEIN 7.1 g/dL (6.2-8.1)
[2022-01-04 14:08] LABS: TOTAL BILIRUBIN 0.3 mg/dL (0.2-1.2)
[2022-01-04 14:33] LABS: BASO # 0.01 K/mm3 (0.02-0.10); EOS # 0.17 K/mm3 (0.04-0.40); EOS % 2.6 % (1.0-5.0); LYMPH# 1.02 K/mm3 (1.50-4.00); MONO # 0.42 K/mm3 (0.20-0.80); NEU # 4.87 K/mm3 (1.40-6.50)
== END ==
LOC: LAB 13:31
PROVIDERS: Internal Medicine
DX: C54.1 Malignant neoplasm of endometrium (principal); E53.8 Deficiency of other specified B group vitamins; I89.0 Lymphedema, not elsewhere classified; G80.0 Spastic quadriplegic cerebral palsy; E55.9 Vitamin D deficiency, unspecified; E61.1 Iron deficiency; I10 Essential (primary) hypertension; K90.9 Intestinal malabsorption, unspecified; S46.912A Strain of unspecified muscle, fascia and tendon at shoulder and upper arm level, left arm, initial encounter

== ENCOUNTER → 2022-04-05 | Outpatient (CLI) | payer MEDICARE, OTHER, MEDICAID ==
[2022-04-05 13:27] LABS: EOS # 0.19 K/mm3 (0.04-0.40); EOS % 3.4 % (1.0-5.0); HEMATOCRIT 33.5 % (37.0-47.0); HEMOGLOBIN 10.4 g/dL (12.5-16.0); LYMPH# 1.53 K/mm3 (1.50-4.00); MEAN CELL VOLUME 91 fl (78-100); MEAN CORPUSCULAR HEMOGLOBIN 28 pg (27-31); MEAN CORPUSCULAR HGB CONC 31 g/dL (33-37); MEAN PLATELET VOLUME 9.5 fl (7.4-10.4); MONO # 0.36 K/mm3 (0.20-0.80); NEU # 3.56 K/mm3 (1.40-6.50); PLATELET COUNT 254 K/mm3 (130-400); RED BLOOD COUNT 3.67 M/mm3 (4.10-5.30); RED CELL DISTRIBUTION WIDTH 13.6 % (11.5-14.5); WHITE BLOOD COUNT 5.7 K/mm3 (4.8-10.8)
[2022-04-05 13:39] LABS: ALBUMIN 3.9 g/dL (3.4-4.8)
[2022-04-05 13:43] LABS: TOTAL BILIRUBIN 0.3 mg/dL (0.2-1.2)
== END ==
LOC: LAB 13:08
PROVIDERS: Internal Medicine
DX: C54.1 Malignant neoplasm of endometrium (principal)

== ENCOUNTER → 2022-07-02 | Outpatient (CLI) | payer MEDICARE, OTHER, MEDICAID ==
[2022-07-02 17:00] LABS: EOS # 0.31 K/mm3 (0.04-0.40); EOS % 5.1 % (1.0-5.0); HEMATOCRIT 35.7 % (37.0-47.0); HEMOGLOBIN 11.1 g/dL (12.5-16.0); LYMPH# 1.59 K/mm3 (1.50-4.00); MEAN CELL VOLUME 91 fl (78-100); MEAN CORPUSCULAR HEMOGLOBIN 28 pg (27-31); MEAN CORPUSCULAR HGB CONC 31 g/dL (33-37); MEAN PLATELET VOLUME 9.8 fl (7.4-10.4); MONO # 0.52 K/mm3 (0.20-0.80); NEU # 3.58 K/mm3 (1.40-6.50); PLATELET COUNT 267 K/mm3 (130-400); RED BLOOD COUNT 3.93 M/mm3 (4.10-5.30); RED CELL DISTRIBUTION WIDTH 13.4 % (11.5-14.5); WHITE BLOOD COUNT 6.1 K/mm3 (4.8-10.8)
[2022-07-02 17:09] LABS: POTASSIUM 4.4 mmol/L (3.5-5.1)
[2022-07-02 17:11] LABS: CALCIUM 9.4 mg/dL (8.3-10.5)
== END ==
LOC: LAB 16:40
PROVIDERS: Internal Medicine Nephrology
DX: I10 Essential (primary) hypertension (principal)

== ENCOUNTER → 2023-07-10 | Outpatient (CLI) | payer MEDICARE, MEDICAID, OTHER ==
[2023-07-10 11:37] LABS: BASO # 0.01 K/mm3 (0.02-0.10); EOS # 0.28 K/mm3 (0.04-0.40); HEMOGLOBIN 11.1 g/dL (12.5-16.0); LYMPH# 1.54 K/mm3 (1.50-4.00); MEAN CELL VOLUME 90 fl (78-100); MEAN CORPUSCULAR HEMOGLOBIN 29 pg (27-31); MEAN CORPUSCULAR HGB CONC 32 g/dL (33-37); MEAN PLATELET VOLUME 9.6 fl (7.4-10.4); NEU # 6.86 K/mm3 (1.40-6.50); PLATELET COUNT 87 K/mm3 (130-400); RED CELL DISTRIBUTION WIDTH 13.9 % (11.5-14.5); WHITE BLOOD COUNT 9.2 K/mm3 (4.8-10.8)
[2023-07-10 11:49] LABS: ALBUMIN 3.8 g/dL (3.4-4.8)
[2023-07-10 11:50] LABS: POTASSIUM 4.7 mmol/L (3.5-5.1)
[2023-07-10 11:51] LABS: CALCIUM 9.1 mg/dL (8.3-10.5)
== END ==
LOC: LAB 11:08
PROVIDERS: Internal Medicine Nephrology
DX: E87.5 Hyperkalemia (principal); I12.9 Hypertensive chronic kidney disease with stage 1 through stage 4 chronic kidney disease, or unspecified chronic kidney disease; N18.9 Chronic kidney disease, unspecified; D63.1 Anemia in chronic kidney disease

== ENCOUNTER → 2024-07-10 | Outpatient (CLI) | payer MEDICARE, MEDICAID ==
[2024-07-10 12:01] LABS: BASO # 0.02 K/mm3 (0.02-0.10); EOS # 0.17 K/mm3 (0.04-0.40); EOS % 2.4 % (1.0-5.0); HEMATOCRIT 34.8 % (37.0-47.0); HEMOGLOBIN 11.1 g/dL (12.5-16.0); LYMPH# 1.87 K/mm3 (1.50-4.00); MEAN CELL VOLUME 91 fl (78-100); MEAN CORPUSCULAR HEMOGLOBIN 29 pg (27-31); MEAN CORPUSCULAR HGB CONC 32 g/dL (33-37); MEAN PLATELET VOLUME 9.3 fl (7.4-10.4); MONO # 0.42 K/mm3 (0.20-0.80); NEU # 4.59 K/mm3 (1.40-6.50); PLATELET COUNT 267 K/mm3 (130-400); RED BLOOD COUNT 3.81 M/mm3 (4.10-5.30); RED CELL DISTRIBUTION WIDTH 13.6 % (11.5-14.5); WHITE BLOOD COUNT 7.1 K/mm3 (4.8-10.8)
[2024-07-10 12:06] LABS: ALBUMIN 3.8 g/dL (3.4-4.8)
[2024-07-10 12:08] LABS: CALCIUM 9.5 mg/dL (8.3-10.5)
== END ==
LOC: LAB 11:19
PROVIDERS: Internal Medicine Nephrology
DX: I12.9 Hypertensive chronic kidney disease with stage 1 through stage 4 chronic kidney disease, or unspecified chronic kidney disease (principal); N18.9 Chronic kidney disease, unspecified; D63.1 Anemia in chronic kidney disease; E87.5 Hyperkalemia

== ENCOUNTER → 2024-08-27 | Outpatient (CLI) | payer MEDICARE, MEDICAID ==
[2024-08-27 14:57] LABS: BASO # 0.01 K/mm3 (0.02-0.10); EOS # 0.16 K/mm3 (0.04-0.40); EOS % 2.3 % (1.0-5.0); HEMATOCRIT 37.5 % (37.0-47.0); HEMOGLOBIN 12.1 g/dL (12.5-16.0); LYMPH# 1.82 K/mm3 (1.50-4.00); MEAN CELL VOLUME 91 fl (78-100); MEAN CORPUSCULAR HEMOGLOBIN 29 pg (27-31); MEAN CORPUSCULAR HGB CONC 32 g/dL (33-37); MEAN PLATELET VOLUME 9.5 fl (7.4-10.4); MONO # 0.42 K/mm3 (0.20-0.80); NEU # 4.43 K/mm3 (1.40-6.50); PLATELET COUNT 275 K/mm3 (130-400); RED BLOOD COUNT 4.13 M/mm3 (4.10-5.30); RED CELL DISTRIBUTION WIDTH 12.7 % (11.5-14.5); WHITE BLOOD COUNT 6.9 K/mm3 (4.8-10.8)
[2024-08-27 15:07] LABS: CALCIUM 9.7 mg/dL (8.3-10.5)
[2024-08-27 15:08] LABS: TOTAL PROTEIN 7.3 g/dL (6.2-8.1)
[2024-08-27 15:10] LABS: TOTAL BILIRUBIN 0.3 mg/dL (0.2-1.2)
[2024-08-27 15:15] LABS: MAGNESIUM 1.49 mg/dL (1.60-2.60)
== END ==
LOC: LAB 14:32
PROVIDERS: Internal Medicine
DX: I10 Essential (primary) hypertension (principal); K90.9 Intestinal malabsorption, unspecified; E11.9 Type 2 diabetes mellitus without complications